=== PATIENT | female | born 1985 | race Caucasian/White ===

== ENCOUNTER 2021-11-29 13:27 | Emergency (ER) | payer OTHER ==
[~2021-11-29] VITALS: Ht 154.9 cm; Wt 80.0 kg
[2021-11-29 14:20] VITALS: BP 165/102
[2021-11-29 14:55] LABS: BASOPHILS # (AUTO) 0.1 X10'3 (0-0.2); BASOPHILS % (AUTO) 1.1 % (0-1); EOSINOPHILS % (AUTO) 0.2 % (0-6); HEMOGLOBIN 15.9 g/dl (12.0-16.0); LYMPHOCYTES # (AUTO) 1.5 X10'3 (1.1-4.8); LYMPHOCYTES % (AUTO) 29.4 % (21-51); MEAN CORPUSCULAR HEMOGLOBIN 30.2 PG (27.0-31.0); MEAN CORPUSCULAR HGB CONC 35.3 g/dL (33.0-36.5); MEAN CORPUSCULAR VOLUME 85.8 FL (78-98); MEAN PLATELET VOLUME 8.1 FL (7.4-10.4); MONOCYTES # (AUTO) 0.3 X10'3 (0-0.9); MONOCYTES % (AUTO) 6.1 % (2-12); NEUTROPHILS # (AUTO) 3.1 X10'3 (1.8-7.7); NEUTROPHILS % (AUTO) 63.2 % (42-75); PLATELET COUNT 240 X10'3 (140-440); RED BLOOD COUNT 5.25 X10'6 (4.20-5.60); RED CELL DISTRIBUTION WIDTH 14.3 % (11.5-14.5)
[2021-11-29 15:04] LABS: HCG SERUM QL NEGATIVE
[2021-11-29 15:08] LABS: ANION GAP 8 (8-16); BILIRUBIN,TOTAL 0.4 MG/DL (0.1-1.0); BLOOD UREA NITROGEN 9 MG/DL (7-18); BUN/CREATININE RATIO 13.4 (6.6-38.0); CALCIUM 9.1 MG/DL (8.5-10.1); CHLORIDE 102 MMOL/L (99-107); CREATININE 0.67 MG/DL (0.40-0.90); GLUCOSE 98 MG/DL (70-104); SODIUM 136 MMOL/L (135-145); TOTAL CARBON DIOXIDE 25.6 MMOL/L (24-32); TOTAL PROTEIN 8.6 G/DL (6.4-8.2); eGFR > 90 ML/MIN
[2021-11-29 15:09] LABS: ALANINE AMINOTRANSFERASE 51 U/L (12-78); ALBUMIN/GLOBULIN RATIO 0.9 (1.1-1.5); ALKALINE PHOSPHATASE 149 IU/L (46-116); ASPARTATE AMINO TRANSFERASE 45 U/L (10-37); LIPASE 92 U/L (73-393)
[2021-11-29 15:10] LABS: POTASSIUM 3.9 MMOL/L (3.5-5.1)
--- NOTE | 2021-11-29 16:24 | NUR ---
LAB CALLED: PATIENT POSITIVE FOR COVID GISELL MARMOLEJO RN AND DR. Sue
[2021-11-29] MEDS ORDERED: normal saline 1000ML IV soln IVB ONE (16:35)
[2021-11-29] MEDS ORDERED: ondansetron/PF 4mg/2ml inj IV ONE (16:35)
[2021-11-29] MEDS ORDERED: ONDA4TAB12 PO (16:36)
--- NOTE | 2021-11-29 17:45 | NUR ---
3 failed attempts for IV start, RN Mansoor to attempt.
== END 2021-11-29 20:06 | disposition home or self-care (01) ==
LOC: ER 13:28
DX: U07.1 COVID-19 (principal); K52.9 Noninfective gastroenteritis and colitis, unspecified; Z88.8 Allergy status to other drugs, medicaments and biological substances; Z79.899 Other long term (current) drug therapy
CPT/HCPCS: 36415; 80053; 83690; 84703; 85025; 87635; 96361; 96374; 99283; C9803; J2405; J7030